=== PATIENT | female | born 1965 | race Caucasian/White ===

== ENCOUNTER → 2017-01-31 | Day surgery (SDC) | payer BC ==
[~2017-01-31] VITALS: Ht 170.2 cm; Wt 59.6 kg
[~2017-01-31] MED LIST: FIBER GUMMIES1 EACH PO; THERAGRAN-M1 TAB PO; VITAMIN B122500 MC1 PO; VITAMIN C500 M4 PO
--- NOTE | ~2017-01-31 | HP ---
PATIENT'S NAME: ALDA BELLAMY [facility] AGE: 51 Y [address] ROOM: [place] [id number] LOCATION: GEND ADMIT DATE: 01/31/2017 History & Physical DISCHARGE DATE: FAMILY PHYSICIAN: Wali Small MD ATTENDING PHYSICIAN: ROMARIO AWAN DATE OF SERVICE: ADDENDUM: I reviewed the H and P. The patient was examined immediately prior to the procedure and I find no changes in her history and physical. ROMARIO AWAN MD AM/chuck /[id number] D: [id number] T: [id number] HISTORY & PHYSICAL
== END | disposition disaster alternative care site (69) ==
LOC: GPOC 01-29 16:30 → GEND 06:51
PROC: 0DBH8ZZ Excision of Cecum, Via Natural or Artificial Opening Endoscopic (ICD-10-PCS; principal; 2017-01-31)
DX: K63.5 Polyp of colon (principal); D64.9 Anemia, unspecified; E78.00 Pure hypercholesterolemia, unspecified; Z85.038 Personal history of other malignant neoplasm of large intestine; Z98.890 Other specified postprocedural states; Z79.899 Other long term (current) drug therapy
CPT/HCPCS: J2001; J7030